=== PATIENT | female | born 1940 | race Caucasian/White ===

== ENCOUNTER 2016-05-17 09:30 | Emergency (ER) | payer MEDICARE, OTHER ==
[~2016-05-17 09:30] MED LIST: ASPIRIN ENTERI325 MG PO; ASPIRIN325 M1 PO; BYETTA10 MCG/0.0 SQ; FISH OIL 1,0001 CA1 PO; KLOR-CON-1010 MEQ PO; METFORMIN; METFORMIN HCL850 MG PO; NIASPAN; NIASPAN1000 MG PO; NORVASC10 M1 PO; POTASSIUM; UNKNOWN BP MED; VITAMIN D 22000 UNIT PO
[2016-05-17] MEDS ORDERED: NORCO 5-325 TA1 EACH PO (11:16)
== END 2016-05-17 11:31 ==
LOC: EDMED 09:30
PROC: 2W3DX1Z Immobilization of Left Lower Arm using Splint (ICD-10-PCS; principal; 2016-05-17)
DX: S52.532A Colles' fracture of left radius, initial encounter for closed fracture (principal); E11.9 Type 2 diabetes mellitus without complications; I10 Essential (primary) hypertension; Z88.0 Allergy status to penicillin; Z88.5 Allergy status to narcotic agent; Z79.82 Long term (current) use of aspirin; Z79.899 Other long term (current) drug therapy; W01.0XXA Fall on same level from slipping, tripping and stumbling without subsequent striking against object, initial encounter; Y93.E9 Activity, other interior property and clothing maintenance; Y92.019 Unspecified place in single-family (private) house as the place of occurrence of the external cause; Y99.8 Other external cause status